=== PATIENT | male | born 1965 | race Two or more races ===

== ENCOUNTER 2018-11-26 23:22 | Inpatient (IN) ==
[2018-11-27] MEDS ORDERED: PIPERACILLIN/TAZOBACTAM 3,375 MG in SODIUM CHLORIDE 0.9% 100 ML IV STA (00:30)
[2018-11-27] MEDS ORDERED: DEXAMETHASONE 4 MG/1 ML VIAL IV STA (00:30)
[2018-11-27] MEDS ORDERED: HYDROmorphone 2 MG/1 ML VIAL IV PRN (00:54)
[2018-11-27] MEDS ORDERED: ONDANSETRON 4 MG/2 ML VIAL IV PRN (00:54)
[2018-11-27] MEDS ORDERED: ACETAMINOPHEN 325 MG TABLET PO PRN (00:54)
[2018-11-27] MEDS ORDERED: INFLUENZA VIRUS VACCINE 0.5 ML SYRINGE IM ONE (01:23)
[2018-11-27] MEDS: SODIUM CHLORIDE 0.9% 1,000 ML IV SCH ×3 (03:05→18:12)
[2018-11-27 05:01] LABS: Basophils % 0.3 % (0.0-0.8); Hematocrit 42.7 VOL% (42.0-52.0); Hemoglobin 13.8 GM/DL (14.0-18.0); Immature Granulocytes % 0.6 %; Immature Granulocytes Absolute 0.08 #; Lymphocytes # 0.6 10*3/uL (1.4-4.0); Lymphocytes % 4.5 % (21.2-54.2); Mean Corpuscular HGB Conc 32.3 GM/DL (32-36); Mean Corpuscular Volume 88.8 FL (87-102); Monocytes % 3.3 % (1.7-12.7); Neutrophils % 91.3 % (38.7-73.9); Platelet Count 176 T/CUMM (130-400); Red Blood Count 4.81 MC/CUMM (3.8-5.5); Red Cell Distribution Width 12.7 % (9.3-17.3); White Blood Count 12.7 T/CUMM (4-12)
[2018-11-27 05:35] LABS: Bilirubin,Total 1.7 MG/DL (0.2-1.0); Calcium 9.2 MG/DL (8.5-10.1); Osmolality,Calculated 278.7 MOS/KG (273-304); Total Protein 7.5 G/DL (6.4-8.3)
[2018-11-27 05:43] LABS: Hypochromasia 1+; Lymphocytes 5 % (20-55); Platelet Estimate Adequate; Segmented Neutrophils 91 % (50-85); Total Cells Counted 100
[2018-11-27] MEDS ORDERED: FAMOTIDINE 20 MG/2 ML VIAL IV ONE (07:27)
[2018-11-27] MEDS ORDERED: LIDOCAINE 2%/EPI 20 ML VIAL ONE (07:27)
[2018-11-27] MEDS ORDERED: PANTOPRAZOLE 40 MG VIAL IV SCH (09:00)
[2018-11-27] MEDS: PIPERACILLIN/TAZOBACTAM 3,375 MG in SODIUM CHLORIDE 0.9% 100 ML IV SCH ×2 (11:42→20:05)
[2018-11-27 21:23] VITALS: BP 131/72
== END 2018-11-27 21:06 | disposition hospice, home (50) | DRG 395 ==
LOC: N.ED 23:22 → N.EDINP 11-27 00:28 → N.3E 11-27 00:47
PROVIDERS: ADMIT Otolaryngology; ATTEND Otolaryngology